=== PATIENT | male | born 1945 | race Caucasian/White ===

== ENCOUNTER 2020-05-21 11:20 | Day surgery (SDC) | payer MEDICARE, OTHER ==
[~2020-05-21] VITALS: Ht 172.7 cm; Wt 90.0 kg
[2020-05-21] VITALS (10 sets, daily range): BP systolic 113–150; BP diastolic 53–88; PULSE 66–96; TEMP 97.8–98.1
--- NOTE | 2020-05-21 12:42 | NUR ---
ADMISSION B COMPLETE. GRANDDAUGHTER IN ROOM. WILL CONTINUE TO MONITOR. CALL LIGHT WITHIN REACH.
[2020-05-21] MEDS ORDERED: GLUCOPHAGE XR500 M1 PO (12:50)
[2020-05-21] MEDS ORDERED: GLUCOTROL 5M5 MG/TAB PO (12:51)
[2020-05-21] MEDS ORDERED: ALTACE 5MG5 MG PO (12:51)
[2020-05-21] MEDS ORDERED: HCTZ 25MG TAB25 MG PO (12:52)
[2020-05-21] MEDS ORDERED: COZAAR100 MG PO (12:52)
[2020-05-21] MEDS ORDERED: LIPITOR 10MG10 MG PO (12:52)
--- NOTE | 2020-05-21 20:00 | NUR ---
Received report from MONTY Young. Pt currently lying in bed and stated that he has no pain at this time. Pt urine is light pink. Pt has been tolerating fluids well so pt fluids were discontinued at this time. [facility]
--- NOTE | 2020-05-21 22:00 | NUR ---
Pt called out and stated that he felt like his catheter was leaking. When pt was assessed pt did have some bleedig around his catheter and he stated that he did feel some pressure. Pt was irrigated at this time and several small clots were removed. Pt urine clor is currently red-tinged. Pt CBI was turned opened up at this time to make sure that pt urine cleared up and pt had no more signs of feeling pressure.
[2020-05-22] VITALS: BP 133/73; PULSE 80; TEMP 98.3
--- NOTE | 2020-05-22 00:32 | NUR ---
Pt aguillon was turned down earlier in the shift. But currentlyl pt urine has turned red-tinged so so the CBI was turned up just a little. Pt has his call light within reach and has no other concerns at this time.
[2020-05-22 04:21] VITALS: BP 122/62; PULSE 80; TEMP 98.4
--- NOTE | 2020-05-22 09:20 | NUR ---
Initial visit; Patient thanked Project Management Director for looking in on him and offering God's blessings.
[2020-05-22 09:26] VITALS: BP 128/70; PULSE 80; TEMP 97.3
--- NOTE | 2020-05-22 11:00 | NUR ---
Cateter prime and pulled per order. 30 ml of water removed from aguillon balloon, catheter tip intact. Patient tolerated procedure well. Six cup initiated, patient educated to call when he voids in the urinal so a sample can be taken. Patient verbalized understanding, denies needs, call light within reach.
[2020-05-22 12:17] VITALS: BP 137/70; PULSE 79; TEMP 97.7
[2020-05-22 17:02] VITALS: BP 115/68; PULSE 96; TEMP 97.4
--- NOTE | 2020-05-22 17:37 | NUR ---
Discharge teaching completed. Questions asked and answered. Discussed making follow up appointment and discharge instructions. Patient denied further questions. INT removed, catheter intact, hemostasis achieved. Patient escorted to ED entrance via wheelchair where he entered a private vehicle.
== END 2020-05-22 17:30 | disposition home or self-care (01) ==
LOC: SURG 11:20 → SDCO 11:20 → INPTSU 11:20 → SURG 13:00 → EDSTATUS 13:00 → INPTSU 15:45 → JCC 15:45 → SDCO 05-22 17:30 → JCC 05-22 17:30
DX: N40.1 Benign prostatic hyperplasia with lower urinary tract symptoms (principal); N13.8 Other obstructive and reflux uropathy; N21.0 Calculus in bladder; E11.9 Type 2 diabetes mellitus without complications; I10 Essential (primary) hypertension; Z90.49 Acquired absence of other specified parts of digestive tract; Z79.84 Long term (current) use of oral hypoglycemic drugs; E78.5 Hyperlipidemia, unspecified; Z20.828 Contact with and (suspected) exposure to other viral communicable diseases
CPT/HCPCS: J0690; J1100; J2405; J2704; J3010; J7120